=== PATIENT | male | born 1990 | race African-American/Black ===

== ENCOUNTER 2023-03-23 02:50 | Emergency (ER) | payer OTHER ==
[~2023-03-23] VITALS: Ht 182.9 cm; Wt 82.6 kg
[2023-03-23 03:48] VITALS: BP 154/83; TEMP 99.6
--- NOTE | 2023-03-23 03:48 | NUR ---
BIBSELF FROM HOME C/O SWOLLEN TONSILS XTUES. RX AMOXICILLIN FROM URGENT CARE & STEP NEGATIVE
[2023-03-23] MEDS ORDERED: PRED50TA PO (03:53)
[2023-03-23] MEDS ORDERED: dexaMETHasone SOD PHOSPHATE 10 MG/ML VIAL ONE (03:56)
[2023-03-23] MEDS: dexaMETHasone SOD PHOSPHATE 4 MG/ML VIAL IM ONE (04:01)
--- NOTE | 2023-03-23 04:01 | NUR ---
Patient discharged to home in stable condition. Written and verbal after care instructions given. Patient verbalizes understanding of instruction.
== END 2023-03-23 04:13 | disposition home or self-care (01) ==
LOC: ER 03:21
DX: J02.9 Acute pharyngitis, unspecified (principal); Z60.2 Problems related to living alone; Z79.899 Other long term (current) drug therapy
CPT/HCPCS: 99283; 96372; J1100